=== PATIENT | male | born 1985 | race Caucasian/White ===

== ENCOUNTER 2021-01-28 10:24 | Emergency (ER) | payer BC ==
[~2021-01-28] VITALS: Ht 182.9 cm; Wt 136.1 kg
[~2021-01-28 10:24] MED LIST: ASPIRIN CHEWABL81 MG PO; AUGMENTIN 875-1 EACH PO; B-1100 MG PO; BACTROBAN OINT22 GM TOP; CARDIZEM CD120 MG PO; CARDIZEM CD240 MG PO; HYDROCHLOROTHIA25 MG PO; KEFLEX CAP 500500 MG PO; LISINOPRIL5 MG PO; LODINE CAP 300300 MG PO; LOPRESSOR 25 MG25 MG PO; PROTONIX40 MG PO; SUBOXONE 8 MG-1 EACH SL; ZESTRIL20 MG PO
[2021-01-28 11:48] LABS: HEMOGLOBIN 19.6 gm/dl (14.0-17.5); RED BLOOD COUNT 5.28 M/UL (4.20-5.50); WHITE BLOOD COUNT 8.1 K/UL (4.5-11.0)
[2021-01-28 11:51] LABS: BUN/CREATININE RATIO 11 (0-10)
[2021-01-28] MEDS ORDERED: ZOFRAN 4 MG TAB4 MG PO (13:55)
[2021-01-28] MEDS ORDERED: PROAIR HFA8.5 GM INH (14:15)
[2021-01-28] MEDS ORDERED: FOLIC ACID1 MG PO (14:15)
[2021-01-28] MEDS ORDERED: LASIX TAB 20 MG20 MG PO (14:15)
[2021-01-28] MEDS ORDERED: IPRAT-ALBUT 0.5-3 ML INH (14:15)
[2021-01-28] MEDS ORDERED: THIAMINE HCL100 MG PO (14:15)
[2021-01-28] MEDS ORDERED: SUBOXONE 8 MG-1 EACH SL (23:39)
== END 2021-01-28 15:30 | disposition home or self-care (01) ==
LOC: ER1 10:24 → CDU 12:32 → ER1 15:30
PROVIDERS: Emergency Medicine
DX: I48.91 Unspecified atrial fibrillation (principal); I10 Essential (primary) hypertension; F17.210 Nicotine dependence, cigarettes, uncomplicated; D75.1 Secondary polycythemia; Z20.822 Contact with and (suspected) exposure to COVID-19; E87.1 Hypo-osmolality and hyponatremia; R94.5 Abnormal results of liver function studies
CPT/HCPCS: 71045; 80053; 82550; 82553; 83874; 84439; 84443; 84484; 85025; 85379; 85610; 85730; 93005; 99285; U0002

== ENCOUNTER → 2021-04-07 | Outpatient (CLI) | payer BC ==
[~2021-04-07] MED LIST changes: +FOLIC ACID1 MG PO; +IPRAT-ALBUT 0.5-3 ML INH; +LASIX TAB 20 MG20 MG PO; +PROAIR HFA8.5 GM INH; +THIAMINE HCL100 MG PO; +ZOFRAN 4 MG TAB4 MG PO
[2021-04-07 16:31] LABS: BUN/CREATININE RATIO 9 (0-10)
== END ==
LOC: LAB 14:07
PROVIDERS: Internal Medicine Cardiovascular Disease
DX: I48.91 Unspecified atrial fibrillation (principal); E78.5 Hyperlipidemia, unspecified; I10 Essential (primary) hypertension; R00.2 Palpitations; I48.0 Paroxysmal atrial fibrillation
CPT/HCPCS: 36415; 80053; 80061; 83735; 84439; 84443; 84481

== ENCOUNTER 2021-07-13 10:44 | Emergency (ER) | payer BC ==
[2021-07-13 12:07] LABS: HEMOGLOBIN 16.8 gm/dl (14.0-17.5); RED BLOOD COUNT 4.86 M/UL (4.20-5.50); WHITE BLOOD COUNT 5.5 K/UL (4.5-11.0)
[2021-07-13 13:57] LABS: BUN/CREATININE RATIO 9 (0-10)
[2021-07-14 11:14] LABS: HBSAG SCREEN Negative (Negative); HEP A AB, IGM Negative (Negative); HEP B CORE AB, IGM Negative (Negative); HEP C VIRUS AB <0.1 (0.0-0.9)
== END 2021-07-14 09:34 | disposition short-term general hospital (02) ==
LOC: ER1 10:44
PROVIDERS: Physician Assistant
DX: K80.10 Calculus of gallbladder with chronic cholecystitis without obstruction (principal); Z20.822 Contact with and (suspected) exposure to COVID-19; I10 Essential (primary) hypertension; F17.210 Nicotine dependence, cigarettes, uncomplicated; Z79.899 Other long term (current) drug therapy
CPT/HCPCS: 76705; 80053; 80074; 80307; 81001; 82150; 83690; 85025; 93005; 96374; 99284; G0480; J2405; Q9967; U0002

== ENCOUNTER → 2022-08-02 | Outpatient (CLI) | payer BC ==
[2022-08-02 19:13] LABS: BUN/CREATININE RATIO 8 (0-10)
== END ==
LOC: LAB 11:21
PROVIDERS: Physician Assistant
DX: E78.5 Hyperlipidemia, unspecified (principal); I10 Essential (primary) hypertension; I48.91 Unspecified atrial fibrillation; I48.92 Unspecified atrial flutter; R00.2 Palpitations; R06.02 Shortness of breath
CPT/HCPCS: 36415; 80053; 80061; 83735; 84439; 84443; 84481